=== PATIENT | female | born 1995 | race Caucasian/White ===

== ENCOUNTER 2021-08-27 12:06 | Emergency (ER) | payer OTHER ==
[~2021-08-27] VITALS: Ht 154.9 cm; Wt 83.9 kg
[2021-08-27 12:14] VITALS: BP 139/70
[2021-08-27] MEDS ORDERED: PRED20TA5 PO (13:43)
[2021-08-27] MEDS ORDERED: LORA10SG1 PO (13:43)
[2021-08-27] MEDS ORDERED: IBUP-2213 PO (13:43)
[2021-08-27] MEDS ORDERED: BENZ1LOZ98 PO (13:43)
[2021-08-27 13:55] VITALS: BP 139/70
== END 2021-08-27 13:55 | disposition home or self-care (01) ==
LOC: MED 12:06
DX: J02.9 Acute pharyngitis, unspecified (principal); R03.0 Elevated blood-pressure reading, without diagnosis of hypertension; Z79.899 Other long term (current) drug therapy
CPT/HCPCS: 87081; 99283